=== PATIENT | female | born 1955 | race Caucasian/White ===

== ENCOUNTER 2016-08-26 13:11 | Day surgery (SDC) | payer BC ==
[2016-08-26] MEDS ORDERED: ceFAZolin 2 GM PREMIX (*) 2 GM/50 ML BAG IVPB ONE (13:33)
[2016-08-26] MEDS ORDERED: Ketorolac INJ* 30 MG/ML 1 ML VIAL ONE (13:42)
[2016-08-26] MEDS ORDERED: Ondansetron INJ* 2 MG/ML VIAL ONE (13:42)
[2016-08-26] MEDS ORDERED: Propofol* 10 MG/ML 20 ML BTL IV PUSH ONE (13:42)
[2016-08-26] MEDS ORDERED: Lidocaine 2% PF * 5 ML VIAL ONE (13:42)
[2016-08-26] MEDS ORDERED: Dexamethasone IV* 4 MG/ML 1 ML (4 MG) ONE (13:42)
[2016-08-26] MEDS ORDERED: KETAMINE HCL* 50 MG/ML 10 ML VIAL ONE (13:42)
[2016-08-26] MEDS ORDERED: fentaNYL* 50 MCG/ML 2 ML VIAL (100 MCG VIAL) ONE (13:42)
[2016-08-26] MEDS ORDERED: Midazolam* 1 MG/ML 5 ML VIAL (5 MG) ONE (13:43)
[2016-08-26] MEDS ORDERED: Famotidine IV* 10 MG/ML 2 ML (20 mg) ONE (13:58)
[2016-08-26] MEDS ORDERED: Metoclopramide TAB* 10 MG ONE (13:58)
[2016-08-26] MEDS ORDERED: Bupivacaine 0.25% SDV* 30 ML ONE (14:18)
[2016-08-26] MEDS ORDERED: HYDROmorphone INJ* 1 MG/ML CARPUJECT SYRINGE ONE ×2 (15:46→16:26)
[2016-08-26] MEDS ORDERED: Ondansetron INJ* 2 MG/ML VIAL IV PRN (16:24)
[2016-08-26] MEDS ORDERED: oxyCODONE/Acetamin 5/325 MG* TAB PO PRN (16:24)
[2016-08-26] MEDS ORDERED: fentaNYL* 50 MCG/ML 2 ML VIAL (100 MCG VIAL) IV PRN (16:24)
[2016-08-26] MEDS: HYDROmorphone INJ* 1 MG/ML CARPUJECT SYRINGE IV PRN ×2 (16:29→16:59)
[2016-08-26] MEDS ORDERED: HYDROcodone/ACETAMIN 5-325 MG* 1 TAB ONE (16:40)
[2016-08-26 17:23] VITALS: BP 123/70
--- NOTE | 2016-08-27 04:03 | OP ---
DATE OF OPERATION: 08/26/16 - [facility] DATE OF : 59 SURGEON: Shiv Marin MD APPAREL CUTTER: ANA Alejandro ANESTHESIOLOGIST: Dr. Ramirez ANESTHESIA: General. PRE-OP DIAGNOSIS: Right intraarticular, two fragment, distal radius fracture. POST-OP DIAGNOSES: Right intraarticular, two fragment, distal radius fracture. OPERATIVE PROCEDURE: Open reduction internal fixation, right intraarticular, two fragment, distal radius fracture. INDICATIONS: Ms. Nunez had a fall and sustained the right distal radius fracture. It was in 30 degrees of dorsal tilt. We had talked about different treatment options including attempted closed reduction and casting versus open reduction internal fixation. We had agreed upon proceeding with open reduction internal fixation with a volar plate. ESTIMATED BLOOD LOSS: 10 mL. COMPLICATIONS: None. FINDINGS: As expected. DESCRIPTION OF PROCEDURE: Ms. Nunez was seen in the preoperative holding area , where the correct site and side were identified. We came back to the operating room and the arm was prepped and draped in the usual fashion and after anesthesia was induced. A formal time out was performed. An incision was made along the course of the flexor carpi radialis tendon distally. Dissection was carried down to the FCR tendon sheath, which was incised longitudinally and the tendon was retracted ulnarly. The subsheath was longitudinally incised in the interval developed between the FPL and the radial artery. The soft tissue was swept off the pronator quadratus. This was then released along the radial aspect of the distal radius and reflected back via an L- shaped flap to expose the fracture. The distal 2 or 3 mm of volar capsule was preserved. The fracture site was cleaned up and then an open reduction was performed and the fracture was pinned using a 0.62 K-wire through the radial styloid. Fluoroscopy was checked and the alignment was nice. I therefore brought in the narrow 3-hole distal radius plate. This was provisionally placed and the position was checked fluoroscopically. The plate was pinned in place. Once we are satisfied with the plate position, I then introduced a single screw through the oblong hole. We checked the alignment again fluoroscopically and I liked the position. So, I went ahead and placed the distal row of screws. Initially, I placed a couple of cortical screws to bring the plate down to bone or to achieve full [id number] apposition. I then replaced these with variable angle locking screws. A total of 5 variable angle locking screws were used distally. The remaining two holes were filled proximally. One with a cortical screw and one with a locking screw. I then checked some final x-ray images and everything looked nice. The wound was then copiously irrigated. The pronator quadratus was repaired with some 3-0 Polysorb suture. Subcutaneous tissue was approximated with 3-0 Polysorb suture and the skin was closed with 4-0 nylon suture. A 0.25% Marcaine was infiltrated into the operative area. The wound were dressed with Xeroform, 4x4s , sterile Webril, and a volar plaster splint was applied. Tourniquet was deflated. The arm had been exsanguinated and the tourniquet inflated prior to making a skin incision. Total tourniquet time was about 70 or 80 minutes. She was then taken to the recovery room in stable condition. [id number]/[facility] #: [id number] EDGARDO
--- NOTE | 2016-08-27 15:22 | RAD ---
INDICATION: M 25.531 COMPARISONS: August 25, 2016 TECHNIQUE: Fluoroscopy was provided for a surgical procedure. Total fluoroscopy time is: 41 seconds FINDINGS: Spot images demonstrate internal fixation of the distal radius IMPRESSION: FLUOROSCOPY WAS PROVIDED FOR A SURGICAL PROCEDURE CPT II Codes: 6045F
== END 2016-08-26 17:33 | disposition home or self-care (01) ==
LOC: OREAST 13:11
PROVIDERS: ATTEND Orthopaedic Surgery Hand Surgery
DX: S52.571A Other intraarticular fracture of lower end of right radius, initial encounter for closed fracture (principal); W19.XXXA Unspecified fall, initial encounter; Y92.9 Unspecified place or not applicable
CPT/HCPCS: 76000; A9270-GY; C1713; C1776; J0690; J1100; J1170; J1885; J2250; J2405; J2704; J3010